=== PATIENT | female | born 1995 | race Caucasian/White ===

== ENCOUNTER 2018-09-07 11:18 | Emergency (ER) | payer SELFPAY ==
[~2018-09-07] VITALS: Ht 157.5 cm; Wt 81.6 kg
--- NOTE | 2018-09-07 11:38 | NUR ---
dr. abbott/brendandetail sergeant in with patient at this time. notable swelling to left side of face. family at side. placed on the monitor
--- NOTE | 2018-09-07 11:52 | NUR ---
when pt was asked if she had any allergies, she replied, "all penicillins; the whole family of them."
[2018-09-07] MEDS ORDERED: DEXAMETHASONE SOD PHOS 10 MG/1 ML VIAL IM NR (12:00)
[2018-09-07] MEDS ORDERED: HYDROCODONE BIT/ACETAMINOPHEN 2.5 MG/108MG PER 5 ML SOLUTION PO NR (12:00)
[2018-09-07] MEDS ORDERED: CEFTRIAXONE SOD 1 GM VIAL IM NR (12:00)
== END 2018-09-07 13:33 | disposition home or self-care (01) ==
LOC: ER 11:18
DX: K08.89 Other specified disorders of teeth and supporting structures (principal); K01.1 Impacted teeth
CPT/HCPCS: 96372; 99284; J0696; J1100